=== PATIENT | male | born 1970 | race Caucasian/White ===

== ENCOUNTER → 2016-10-17 | Emergency (ER) | payer MEDICARE | END | disposition left against medical advice (07) | LOC: ER 10:11 | DX: Z53.21 Procedure and treatment not carried out due to patient leaving prior to being seen by health care provider (principal) ==

== ENCOUNTER 2016-10-24 20:17 | Emergency (ER) | payer MEDICARE ==
[2016-10-24] MEDS ORDERED: ASPIRIN 81 MG CHEW TAB ONE (20:25)
== END 2016-10-25 00:14 | disposition home or self-care (01) ==
LOC: ER 20:17
CPT/HCPCS: 36415; 71010; 80053; 82550; 83735; 83880; 84484; 85025; 85610; 85730; 93005